=== PATIENT | female | born 1965 | race Caucasian/White ===

== ENCOUNTER 2017-05-05 11:43 | Inpatient (IN) | payer OTHER ==
[~2017-05-05] VITALS: Ht 170.2 cm; Wt 74.8 kg
[~2017-05-05 11:43] MED LIST: PIPERACILLIN/TAZO 3.38 GM in NS 50 ML IV SCH
[2017-05-05 11:54] VITALS: BP 143/84; PULSE 79; RESP 20; TEMP 97.2; O2SAT 97
--- NOTE | 2017-05-05 11:59 | NUR ---
Pt placed to ER bed 03, to gown, report given to XENIA Alejandro.
--- NOTE | 2017-05-05 12:00 | NUR ---
Patient complaining of sharp right lower quadrant abdominal pain that began 05/02/17 immediately following colonoscopy, +nausea,-vomiting per pt. Denies rectal bleeding. No other complaints/injuries per pt or noted.
--- NOTE | 2017-05-05 12:01 | NUR ---
ER Dr. Everett at bedside examining patient.
[2017-05-05] MEDS ORDERED: NACL 0.9% 1,000 ML IV SCH (12:07)
[2017-05-05] MEDS ORDERED: GENTAMICIN 120 mg/100 mL NS 100 ML IV ONE (12:15)
[2017-05-05] MEDS ORDERED: ONDANSETRON HCL 4 MG/2 ML VIAL IVP ONE ×2 (12:15→18:30)
[2017-05-05] MEDS ORDERED: MORPHINE 4 MG/ML INJ. SYRINGE IVP ONE ×2 (12:15→22:15)
[2017-05-05] MEDS ORDERED: VANCOMYCIN HCL 1,000 MG in D5W 250 ML IV ONE (12:15)
[2017-05-05 12:28] LABS: BILIRUBIN,URINE NEGATIVE (NEGATIVE); BLOOD, URINE TRACE (NEGATIVE); CLARITY/URINE CLEAR (CLEAR); COLOR,URINE YELLOW (YELLOW); GLUCOSE,URINE NEGATIVE (NEGATIVE); KETONES,URINE NEGATIVE (NEGATIVE); LEUKOCYTE ESTERASE ,URINE NEGATIVE (NEGATIVE); NITRITE, URINE NEGATIVE (NEGATIVE); PH,URINE 5.5 (5.0-8.0); PROTEIN URINE NEGATIVE (NEGATIVE)
[2017-05-05 12:33] LABS: BACTERIA,URINE FEW /HPF (None Seen); RBC,URINE 0-3 /HPF (0-3); WBC,URINE 0-3 /HPF (0-3)
[2017-05-05 12:34] LABS: MUCUS,URINE None Seen /LPF (None Seen)
[2017-05-05 12:53] LABS: CALCIUM 8.7 mg/dL (8.4-11.0); CREATININE 0.7 mg/dL (0.55-1.30); POTASSIUM 3.3 mmol/L (3.5-5.1)
[2017-05-05 12:56] LABS: PROTHROMBIN TIME 10.8 SECS (9.5-12.5)
[2017-05-05 12:57] LABS: ALBUMIN 3.3 g/dL (3.4-4.8); TOTAL BILIRUBIN 0.4 mg/dL (0.0-1.0); TOTAL PROTEIN, SERUM 7.9 g/dL (6.4-8.3)
[2017-05-05 13:11] LABS: BASOPHILS # (AUTO) 0.3 K/uL (0.0-0.2); BASOPHILS % (AUTO) 2.1 % (0.0-2.0); EOSINOPHILS # (AUTO) 0.2 K/uL (0.0-0.4); EOSINOPHILS % (AUTO) 1.3 % (0.0-4.0); HEMATOCRIT 36.1 % (36-48); HEMOGLOBIN 12.1 g/dL (12.0-16.0); LYMPHOCYTES # (AUTO) 1.7 K/uL (1.0-5.5); LYMPHOCYTES % (AUTO) 14.5 % (20.5-51.5); MEAN CORPUSCULAR HEMOGLOBIN 30 pg (27-31); MEAN CORPUSCULAR HGB CONC 34 % (32-36); MEAN CORPUSCULAR VOLUME 90 fL (79.0-98.0); MONOCYTES # (AUTO) 0.9 K/uL (0.0-1.0); MONOCYTES % (AUTO) 7.2 % (1.7-9.3); NEUTROPHILS # (AUTO) 8.8 K/uL (1.8-7.7); NEUTROPHILS % (AUTO) 74.9 % (40.0-70.0); PLATELET COUNT (AUTO) 241 K/uL (130-430); RED BLOOD CELL COUNT(AUTO) 4.03 MIL/uL (4.2-6.2); RED CELL DISTRIBUTION WIDTH 13.4 % (9.0-15.0); WHITE BLOOD COUNT (AUTO) 11.9 K/uL (4.8-10.8)
[2017-05-05] MEDS ORDERED: VANCOMYCIN HCL 1000 MG/VIAL IV ONE (13:45)
--- NOTE | 2017-05-05 13:46 | NUR ---
Stable condition, no distress noted.
[2017-05-05] MEDS ORDERED: PARO-41 PO (14:23)
[2017-05-05] MEDS ORDERED: LISI10TA5 PO (14:23)
--- NOTE | 2017-05-05 14:23 | NUR ---
Medication reconciliation completed with information provided by patient. Any prior medication reconciliation on file was reviewed and corrected.
--- NOTE | 2017-05-05 14:38 | NUR ---
Patient states does not have any home mediations with her. Addendum: 05/05/17 at 1513 by ARTEMIO medications
[2017-05-05] MEDS ORDERED: HYDROmorphone 1 MG INJ. 1 MG/ML AMPUL IVP PRN ×3 (14:45→22:30)
[2017-05-05] MEDS ORDERED: D5/0.45 NS 1,000 ML IV SCH (14:45)
[2017-05-05] MEDS ORDERED: ONDANSETRON HCL 4 MG/2 ML VIAL IVP PRN ×3 (14:45→22:30)
[2017-05-05] MEDS ORDERED: metroNIDAZOLE 500 mg/NS 100 ML IV SCH (14:45)
--- NOTE | 2017-05-05 14:45 | NUR ---
RN ROUNDS PATIENT IS CURRENTLY RESTING IN BED, NO SIGNS OF DISTRESS NOTED, BREATHING IS EVEN AND UNLABORED, INFORMED PATIENT TIME OF SURGERY, PATIENT HAD NO QUESTIONS AT THIS TIME, WILL CONTINUE TO MONITOR PATIENT, FALL PRECAUTIONS IN PLACE.
--- NOTE | 2017-05-05 15:00 | NUR ---
Patient will be admitted to care of Dr. Camp. Admitted to medsurg unit. Will go to room 124B. Belongings list completed. Summary report printed. Report given to Jumana MICHAELS.
--- NOTE | 2017-05-05 15:15 | NUR ---
Admission Note Received patient from ER with diagnosis of acute appendicitis. Initial Plan of Care discussed-patient verbalized understanding. Family at bedside. Oriented to room, call light, pain management and safety. at bed side
[2017-05-05 15:18] VITALS: BP 123/72; PULSE 75; RESP 18; TEMP 100.4; O2SAT 96
[2017-05-05] MEDS ORDERED: KETOROLAC TROMETHAMINE 30 MG VIAL IVP ONE ×4 (17:00→22:15)
--- NOTE | 2017-05-05 17:01 | NUR ---
DR. ERNIE KLEIN CALLED REGARDING PATIENT, INFORMED THAT PATIENT'S POTASSIUM LEVEL IS AT 3.3. STATED HE WILL RECHECK AFTER SURGERY, INFORMED OF LOW GRADE FEVER AND MILD PAIN, ORDERED FOR PATIENT TO HAVE ONE TIME ORDER OF TORODOL 30MG IVP
[2017-05-05] MEDS: PIPERACILLIN/TAZO 3.375/DEX-IS 50 ML IV SCH (17:58)
[2017-05-05 18:00] VITALS: BP 119/73; PULSE 72; RESP 18; TEMP 99.3; O2SAT 97
--- NOTE | 2017-05-05 18:28 | NUR ---
PATIENT OFF UNIT PATIENT IS OFF UNIT FOR PROCEDURE, VITALS STABLE.
--- NOTE | 2017-05-05 18:29 | NUR ---
CLOSING NOTE WILL ENDORSE PATIENT TO EXPORT SALES ASSISTANT NURSE THAT PATIENT IS IN OR HAVING PROCEDURE, WILL ENDORSE TO FOLLOW UP ON ORDER FOR PATIENT TO HAVE POTASSIUM RECHECKED AFTER SURGERY
[2017-05-05] MEDS ORDERED: fentaNYL CITRATE/PF 100 MCG/2 ML AMP IVP ONE (18:30)
[2017-05-05] MEDS ORDERED: MIDAZOLAM HCL 5 MG/5 ML VIAL IVP ONE (18:30)
[2017-05-05] MEDS ORDERED: GLYCOPYRROLATE 0.2 MG/ML VIAL IJ ONE (18:30)
[2017-05-05] MEDS ORDERED: WATER FOR IRRIGATION,STERILE 1,000 ML IRRIG.SOLN IR ONE (18:30)
[2017-05-05] MEDS ORDERED: LR 1,000 ML IV.SOLN IV ONE (18:30)
[2017-05-05] MEDS ORDERED: ROCURONIUM BROMIDE 10 MG/ML (ZEMURON) IV ONE (18:30)
[2017-05-05] MEDS ORDERED: SEVOFLURANE 15 MIN GAS INH ONE (18:30)
[2017-05-05] MEDS ORDERED: NEOSTIGMINE METHYLSULFATE 1 MG/ML, 10 ML VIAL IVP ONE (18:30)
[2017-05-05] MEDS ORDERED: LR 1,000 ML IV SCH (19:16)
[2017-05-05] MEDS ORDERED: KETOROLAC TROMETHAMINE 30 MG VIAL IVP PRN ×2 (19:30→22:30)
[2017-05-05] MEDS ORDERED: HYDROmorphone 2 MG/ML VIAL IVP PRN ×2 (19:30)
[2017-05-05] MEDS ORDERED: NACL 0.9% 1,000 ML IV ONE (20:40)
[2017-05-05] MEDS ORDERED: MORPHINE SULFATE 10 MG/ML VIAL IVP ONE (20:45)
[2017-05-05] MEDS ORDERED: PIPERACILLIN/TAZO 3.38 GM in NS 50 ML IV ONE (20:45)
--- NOTE | 2017-05-05 20:55 | NUR ---
NOTES; RECEIVED PT FROM OR TO ROOM 124B. PT IS IN BED, ABUSABLE AND ABLE TO ANSWER SIMPLE QUESTION BUT DROWSY. BP 110/52, 73, TEMP 98.2, RESP 18, SAT 96%. ABDOMEN IS SOFT, BUT TENDER TO TOUCH. HYPOACTIVE BOWEL SOUNDS. X4 SMALL ABDOMINAL DRESSING WITH BANDAGE CLEAN,DRY, AND INTACT. NO BLEEDING NOTED. IV TO THE RT A/C , PATENT. NO SIGNS OF INFECTION NOTED ON IV SITE. SCD TO THE LIZETTE LEG. PT DENIES ANT ANY PAIN AT THIS TIME.BED LOCKED AND IN LOW POSITION, SIDE RAILS UP X3. INSTRUCTED PT ON THE USE OF CALL LIGHT. PT NODDED YES. AT BEDSIDE WITH GOOD SUPPORT.
[2017-05-05] MEDS ORDERED: DIPHENHYDRAMINE INJ 50 MG/ML VIAL IVP ONE (21:00)
[2017-05-05] MEDS ORDERED: PIPERACILLIN/TAZOBACTAM 3.375 GM/VIAL (ZOSYN) IV ONE (21:45)
[2017-05-05] MEDS ORDERED: KCL 40mEq in D5/0.45NS 1000 mL 1,000 ML IV ONE (22:00)
[2017-05-05] MEDS: D5/0.45 NS 1,000 ML IV SCH (22:17)
--- NOTE | 2017-05-05 22:21 | NUR ---
paged Dr. Camp for orders Spoke with Siria
--- NOTE | 2017-05-05 22:28 | NUR ---
CALLED PATRIC PHELPS Called Dr. Borjas to confirm the order of Flagyl 500mg IVPB Q8hrs. MD stated "Continue the Flagyl and Zosyn IVPB as ordered. Should be give 2200 dose." Also informed MD patient denied of pain at this time. The order of Benadryl and Morphine 6mg IVP once dose with . Orders read back and okay to .
[2017-05-05] MEDS: metroNIDAZOLE 500 mg/NS 100 ML IV SCH (22:41)
--- NOTE | 2017-05-05 23:00 | NUR ---
NOTES; I S PROVIDED, WITH PT. INSTRUCTED PT ON THE USE OF I S TO BE USED 10X/. PT DEMONSTRATED UP TO 1000. INSTRUCTED PT TO USE I SX10/HR WHILE AWAKE. WILL CONTINUE TO MONITOR.
[2017-05-06] MEDS ORDERED: PIPERACILLIN/TAZO 3.375/DEX-IS 50 ML IV SCH
[2017-05-06 00:22] VITALS: BP 135/80; PULSE 87; RESP 16; TEMP 99; O2SAT 100
[2017-05-06] MEDS: PIPERACILLIN/TAZO 3.375/DEX-IS 50 ML IV SCH ×4 (00:43→18:19)
--- NOTE | 2017-05-06 01:47 | NUR ---
NOTES; PT APPEARED TO BE SLEEPING, EYES CLOSED. EASILY AROUSED. SAFETY MEASURES IN PROGRESS.
--- NOTE | 2017-05-06 03:30 | NUR ---
NOTES; PT APPEARED TO BE SLEEPING, EYES CLOSED. EASILY AROUSED. NO ACUTE DISTRESS NOTED. SAFETY MEASURES IN PROGRESS.
[2017-05-06 04:26] VITALS: BP 116/63; PULSE 87; RESP 16; TEMP 99.2; O2SAT 92
--- NOTE | 2017-05-06 05:30 | NUR ---
NOTES; PT APPEARED TO BE SLEEPING, EYES CLOSED. RESPIRATION EVEN AND UNLABORED. EASILY AROUSED. NO ACUTE DISTRESS NOTED. DENIES ANY PAIN AT THIS TIME. SAFETY MEASURES IN PROGRESS.
[2017-05-06 06:22] LABS: CALCIUM 8.1 mg/dL (8.4-11.0); CREATININE 0.83 mg/dL (0.55-1.30); POTASSIUM 3.1 mmol/L (3.5-5.1)
[2017-05-06] MEDS: metroNIDAZOLE 500 mg/NS 100 ML IV SCH ×3 (06:33→21:53)
[2017-05-06 06:51] LABS: HEMATOCRIT 31.1 % (36-48); HEMOGLOBIN 10.3 g/dL (12.0-16.0); MEAN CORPUSCULAR HEMOGLOBIN 30 pg (27-31); MEAN CORPUSCULAR HGB CONC 33 % (32-36); MEAN CORPUSCULAR VOLUME 90 fL (79.0-98.0); PLATELET COUNT (AUTO) 236 K/uL (130-430); RED BLOOD CELL COUNT(AUTO) 3.45 MIL/uL (4.2-6.2); RED CELL DISTRIBUTION WIDTH 13.3 % (9.0-15.0); WHITE BLOOD COUNT (AUTO) 11.1 K/uL (4.8-10.8)
[2017-05-06 08:00] VITALS: BP 119/74; PULSE 87; RESP 18; TEMP 96.3; O2SAT 96
--- NOTE | 2017-05-06 08:00 | NUR ---
initial notes rec patient awake and ambulating at intervals to the br. ivf infusing well on the r ac. no infiltration noted. denies pain at this time. noted with 4 band aids in the abdomen. no bleeding noted but gassy per ascultation. encouraged patient to walk and waiting for to arrive. bed in low position and side rails up and locked. call light within reached and knows when to call for assistance.
[2017-05-06 08:01] LABS: ATYPICAL LYMPHOCYTES % 0 % (0-0); BAND % (MANUAL) 16 % (0-6); BASOPHILS % (MANUAL) 0 % (0-2); EOSINOPHILS % (MANUAL) 0 % (0-7); LYMPHOCYTES % (MANUAL) 11 % (20-46); MONOCYTES % (MANUAL) 7 % (0-11)
--- NOTE | 2017-05-06 10:30 | NUR ---
rounds medicated as ordered for pain and no sob noted. at bedside.
[2017-05-06 12:00] VITALS: BP 109/66; PULSE 77; RESP 18; TEMP 99; O2SAT 97
--- NOTE | 2017-05-06 12:00 | NUR ---
rounds with visitor at bedside. call light within reached .
[2017-05-06] MEDS: D5/0.45 NS 1,000 ML IV SCH (12:32)
--- NOTE | 2017-05-06 14:00 | NUR ---
rounds dr flynn was called and relayed k result and with orders. no sob noted.awaiting for iv from pharmacy. ambulates at intervals on the hallway and suzy well. no sob noted.
[2017-05-06 16:00] VITALS: BP 112/60; PULSE 65; RESP 18; TEMP 97.4; O2SAT 93
--- NOTE | 2017-05-06 16:00 | NUR ---
rounds pt reported had a bowel movement and felt better after. dr flynn was called and inquired re increasing the diet but stated to remain on clear liquid.
[2017-05-06] MEDS: KCL 30mEq in D5/0.45NS 1000 mL 1,000 ML IV SCH (17:05)
--- NOTE | 2017-05-06 18:30 | NUR ---
closing notes pt resting comfortably in bed and watching tv. denies pain and due abx was given . no sob noted. call light within reached.
[2017-05-06 20:00] VITALS: BP 140/85; PULSE 90; RESP 20; TEMP 100.3; O2SAT 96
--- NOTE | 2017-05-06 20:00 | NUR ---
NOTES; SEEN PT SITTING UP IN BED, NO APPARENT DISTRESS NOTED. ABDOMEN IS SOFT, BUT TENDER TO TOUCH. ACTIVE BOWEL SOUNDS. X4 SMALL ABDOMINAL DRESSING WITH BANDAGE CLEAN,DRY, AND INTACT. NO BLEEDING NOTED. ORDERED IVF INFUSING WELL ON THE RT A/C , PATENT. NO SIGNS OF INFILTRATION OR INFECTION NOTED ON IV SITE. I S AT BEDSIDE. PT DEMONSTRATED IS UP TO 1000cc. SCD TO THE LIZETTE LEG. PT DENIES ANT ANY PAIN AT THIS TIME.BED LOCKED AND IN LOW POSITION, SIDE RAILS UP X3. INSTRUCTED PT ON THE USE OF CALL LIGHT. PT NODDED YES. AT BEDSIDE WITH GOOD SUPPORT.
--- NOTE | 2017-05-06 20:13 | NUR ---
Paged Dr. Camp for orders phone number [phone]
--- NOTE | 2017-05-06 20:20 | NUR ---
NOTES; TEMPERATURE FOUND TO BE 100.3. DR. KLEIN CALLED. SPOKE WITH MD AND INFORMED HIM ABOUT PT TEMPERATURE OF 100.3. TYLENOL 650MG PO X1 ORDER RECEIVED.
[2017-05-06] MEDS ORDERED: ACETAMINOPHEN 325 MG TABLET PO ONE (20:30)
--- NOTE | 2017-05-06 20:38 | NUR ---
NOTES; TYLENOL 650MG PO ADMINISTERED FOR 100.3TEMP. PT TOLERATED MEDICATION WELL.
--- NOTE | 2017-05-06 22:30 | NUR ---
NOTES; IV ON THE RT AC WITH CONTINUOUS BEEPING WHEN EVER PT MOVE, PT REQUESTED IV TO BE CHANGED. NEW IV STARTED ON THE RT HAND, GAUGE 22. OLD IV ON THE RT AC REMOVED WITH CATHETER TIP INTACT. DRESSING APPLIED.
--- NOTE | 2017-05-06 23:54 | NUR ---
Paged Dr Camp for orders spoke with Siria.
[2017-05-07] VITALS: BP 131/85; PULSE 94; RESP 18; TEMP 97.7; O2SAT 96
--- NOTE | 2017-05-07 00:19 | NUR ---
NOTES; PT C/O THAT SHE TAKES PAROXETINE 10MG PO DAILY AT HOME, BUT HAS NOT TAKEN THE MEDICATION SINCE HOSPITAL ADMISSION. PT STATED " I CANT SLEEP ". DR. KLEIN CALLED, SPOKE WITH MD, AND INFORMED HIM ABOUT PT COMPLAINT . ORDERS RECEIVED TO CONTINUE HOME MEDS AND ADMINISTER PAROXETINE 10MG PO NOW.
[2017-05-07] MEDS ORDERED: PARoxetine HCL 20 MG TABLET PO ONE (00:30)
--- NOTE | 2017-05-07 00:37 | NUR ---
NOTES; PAXIL 10MG PO ADMINISTERED FOR ANXIETY.
[2017-05-07] MEDS: PIPERACILLIN/TAZO 3.375/DEX-IS 50 ML IV SCH ×3 (00:50→11:29)
--- NOTE | 2017-05-07 02:00 | NUR ---
NOTES; PT APPEARED TO BE SLEEPING, EYES CLOSED. RESPIRATION EVEN AND NONLABORED. SAFETY MEASURES IN PROGRESS.N
[2017-05-07 04:00] VITALS: BP 139/96; PULSE 91; RESP 18; TEMP 97.8; O2SAT 95
--- NOTE | 2017-05-07 04:30 | NUR ---
NOTES; PT APPEARED TO BE SLEEPING, EYES CLOSED. RESPIRATION EVEN AND NONLABORED. SAFETY MEASURES IN PROGRESS.N
[2017-05-07] MEDS: KCL 30mEq in D5/0.45NS 1000 mL 1,000 ML IV SCH ×2 (06:01→09:30)
[2017-05-07] MEDS: metroNIDAZOLE 500 mg/NS 100 ML IV SCH ×2 (06:02→12:28)
--- NOTE | 2017-05-07 08:00 | NUR ---
AM Initial Notes Pt [id number] with complaints of post surgical abdominal pain 01/07 but refused to be medicated. No distress noted. Abdominal incisions covered with band aid. No signs of redness, swelling, infection or drainage noted. Educated about fall and safety precautions. Encouraged to call for assistance. Call light within reach. Will monitor.
--- NOTE | 2017-05-07 08:20 | NUR ---
Dr. Zoë BURDICK doing rounds. Plan of care discussed with patient.
[2017-05-07 08:39] VITALS: BP 147/89; PULSE 77; RESP 18; TEMP 97.9; O2SAT 96
[2017-05-07] MEDS ORDERED: LISINOPRIL 10 MG TABLET (PRINIVIL) PO SCH (09:00)
[2017-05-07] MEDS ORDERED: PARoxetine HCL 20 MG TABLET PO SCH (09:00)
--- NOTE | 2017-05-07 10:00 | NUR ---
Rounds Pt asleep. No signs of facial grimacing for pain or discomfort. No distress noted. Will monitor.
[2017-05-07 12:00] VITALS: BP 141/80; PULSE 72; RESP 20; TEMP 97.8; O2SAT 98
[2017-05-07 12:28] VITALS: BP 131/78; PULSE 91; RESP 19; TEMP 97.9; O2SAT 97
--- NOTE | 2017-05-07 12:30 | NUR ---
Rounds Pt awake resting in bed. Pt will be going home after antibiotic treatment. No complaints of abdominal pain unless with movement. No distress noted. Will monitor.
--- NOTE | 2017-05-07 13:50 | NUR ---
DISCHARGE Discharge patient with . Transitional care instructions, handout and prescription for Cipro, Flagyl, Clark and Colace explained and given. D/C IV and dressing applied. Vital signs stable. Pt left floor via w/c to private vehicle. No distress noted.
== END 2017-05-07 13:50 | disposition home or self-care (01) | DRG 340 ==
LOC: SED 11:43 → SMU 14:40
PROVIDERS: ADMIT Transplant Surgery; ATTEND Transplant Surgery
PROC: 0DTJ4ZZ Resection of Appendix, Percutaneous Endoscopic Approach (ICD-10-PCS; principal; 2017-05-05 18:00)
DX: K35.3 Acute appendicitis with localized peritonitis (principal); I10 Essential (primary) hypertension; E87.6 Hypokalemia; Z90.49 Acquired absence of other specified parts of digestive tract; Z79.899 Other long term (current) drug therapy
CPT/HCPCS: 36415; 71010; 80048; 80053; 81000-TC; 81025; 83605; 83690-TC; 84703; 85007; 85025; 85027; 85610-TC; 85730-TC; 87040-TC; 87081; 88304; 93005; 96365; 96366; 96367; 96375; 99285; C1727; J1170; J1580; J1885; J2250; J2270; J2405; J2543; J2710; J3010; J3370; J3490; J7030; J7060; J7120

== ENCOUNTER 2019-12-28 20:12 | Emergency (ER) | payer MEDICAID, OTHER ==
[~2019-12-28] VITALS: Ht 170.2 cm; Wt 77.1 kg
[~2019-12-28 20:12] MED LIST changes: +LISI10TA5 PO; +PARO-41 PO; -PIPERACILLIN/TAZO 3.38 GM in NS 50 ML IV SCH
[2019-12-28 20:31] VITALS: BP_SYST 140
[2019-12-28 21:27] LABS: BASOPHILS # (AUTO) 0.1 K/uL (0.0-0.2); BASOPHILS % (AUTO) 1.2 % (0.0-2.0); EOSINOPHILS # (AUTO) 0.2 K/uL (0.0-0.4); EOSINOPHILS % (AUTO) 2.6 % (0.0-4.0); HEMATOCRIT 41.3 % (36-48); HEMOGLOBIN 13.7 g/dL (12.0-16.0); LYMPHOCYTES # (AUTO) 2.5 K/uL (1.0-5.5); LYMPHOCYTES % (AUTO) 32.5 % (20.5-51.5); MEAN CORPUSCULAR HEMOGLOBIN 30 pg (27-31); MEAN CORPUSCULAR HGB CONC 33 % (32-36); MEAN CORPUSCULAR VOLUME 90 fL (79.0-98.0); MONOCYTES # (AUTO) 0.5 K/uL (0.0-1.0); MONOCYTES % (AUTO) 6.4 % (1.7-9.3); NEUTROPHILS # (AUTO) 4.5 K/uL (1.8-7.7); NEUTROPHILS % (AUTO) 57.3 % (40.0-70.0); PLATELET COUNT (AUTO) 241 K/uL (130-430); RED BLOOD CELL COUNT(AUTO) 4.59 MIL/uL (4.2-6.2); RED CELL DISTRIBUTION WIDTH 14.3 % (9.0-15.0); WHITE BLOOD COUNT (AUTO) 7.8 K/uL (4.8-10.8)
[2019-12-28 21:32] LABS: INR 1.1 (0.8-1.2); PROTHROMBIN TIME 10.6 SECS (9.5-12.5)
[2019-12-28 21:34] LABS: CALCIUM 9.3 mg/dL (8.4-11.0); CREATININE 0.71 mg/dL (0.55-1.30); POTASSIUM 3.5 mmol/L (3.5-5.1)
[2019-12-28 21:39] LABS: ALBUMIN 4.1 g/dL (3.4-4.8); TOTAL BILIRUBIN 0.3 mg/dL (0.0-1.0)
--- NOTE | 2019-12-28 23:11 | NUR ---
Pt ambulatory to bed 4 for evaluation
--- NOTE | 2019-12-28 23:15 | NUR ---
ER at bedside examining patient.
--- NOTE | 2019-12-28 23:20 | NUR ---
Pt came to the ED for difficulty breathing for 3 days. Reports she feels like she is "catching her breath." Denies n/v/d or fever. Denies chest pain. Per , pt has been taking care of her mother. No other complaints/injuries noted. Will cont. to monitor.
[2019-12-29] MEDS ORDERED: IPRATROPIUM/ALBUTEROL SULFATE 3 ML AMPUL.NEB (DUONEB) INH ONE
--- NOTE | 2019-12-29 00:17 | NUR ---
RT at bedside for breathing tx.
[2019-12-29] MEDS ORDERED: methylPREDNISolone SOD SUCC/PF 62.5 MG/ML VIAL IM ONE (01:15)
[2019-12-29 01:45] VITALS: BP_SYST 140
--- NOTE | 2019-12-29 01:45 | NUR ---
Patient given written and verbal discharge instructions and verbalizes understanding. ER MD Dr. Aleman discussed with patient the results and treatment provided. Patient in stable condition. ID arm band removed. Rx of predisone and albuterol given. Patient educated on pain management and to follow up with PMD. Pain Scale 0/10. Opportunity for questions provided and answered. Medication side effect fact sheet provided.
== END 2019-12-29 01:45 | disposition home or self-care (01) ==
LOC: SED 20:12
DX: J98.01 Acute bronchospasm (principal); I10 Essential (primary) hypertension; E78.00 Pure hypercholesterolemia, unspecified; Z90.49 Acquired absence of other specified parts of digestive tract
CPT/HCPCS: 36415; 71045; 80053; 82550; 83880; 84484; 85025; 85379; 85610; 93005; 94640; 96372; 99284; J2930; J7620